=== PATIENT | female | born 1995 | race Caucasian/White ===

== ENCOUNTER 2022-12-24 18:40 | Emergency (ER) | payer OTHER ==
[~2022-12-24] VITALS: Ht 162.6 cm; Wt 59.0 kg
[2022-12-24 21:15] VITALS: BP 101/67
[2022-12-24] MEDS ORDERED: CYCLOBENZAPRINE 10MG TABLET PO ONE (21:15)
[2022-12-24] MEDS ORDERED: IBUPROFEN 600MG TABLET PO ONE (21:15)
[2022-12-24] MEDS ORDERED: CYCL10TA21 MT (22:51)
[2022-12-24] MEDS ORDERED: NAPR-681 MT (22:51)
== END 2022-12-24 23:05 | disposition home or self-care (01) ==
LOC: ER 18:40
DX: M54.6 Pain in thoracic spine (principal); Z90.49 Acquired absence of other specified parts of digestive tract
CPT/HCPCS: 71045; 81025; 99283